=== PATIENT | male | born 1955 | race Caucasian/White ===

== ENCOUNTER → 2023-07-07 13:26 | Outpatient (REF) | payer MEDICARE, BC, SELFPAY | LOC: HWEVLT 13:26 | PROVIDERS: ATTENDING PHYSICIAN Radiology Diagnostic Radiology | DX: I83.892 Varicose veins of left lower extremity with other complications (principal) | CPT/HCPCS: 93971 ==

== ENCOUNTER → 2023-08-18 09:33 | Outpatient (REF) | payer MEDICARE, BC, SELFPAY | LOC: HWEVLT 09:33 | PROVIDERS: ATTENDING PHYSICIAN Radiology Diagnostic Radiology | DX: I83.892 Varicose veins of left lower extremity with other complications (principal) | CPT/HCPCS: 36478 ==

== ENCOUNTER → 2023-09-01 11:19 | Outpatient (REF) | payer MEDICARE, BC, SELFPAY | LOC: HWEVLT 11:19 | PROVIDERS: ATTENDING PHYSICIAN Radiology Vascular & Interventional Radiology | DX: I83.892 Varicose veins of left lower extremity with other complications (principal) | CPT/HCPCS: 93971 ==